=== PATIENT | female | born 1965 | race Caucasian/White ===

== ENCOUNTER → 2016-07-31 16:29 | Outpatient (CLI) | payer OTHER ==
[2013-06-16 07:22] VITALS: BMI 27.5
[~2016-07-31 16:29] MED LIST: ASPIRIN325 MG PO; B-12 DOTS500 MCG; CALAN SR240 MG PO; FOLATE0.4 MG PO; LASIX20 MG PO; NORCO 10/325 TA1 TA1 PO; POTABA500 M1; PRAVACHOL40 MG PO; PRILOSEC20 MG PO; TOPROL XL50 MG PO; TRIGLIDE160 MG PO; XANAX1 MG PO
== END | disposition home or self-care (01) ==
LOC: D.MAMMO 11:15
DX: Z12.31 Encounter for screening mammogram for malignant neoplasm of breast (principal)

== ENCOUNTER → 2017-09-09 20:09 | Outpatient (CLI) | payer OTHER ==
[2013-06-16 07:22] VITALS: BMI 27.5
== END | disposition home or self-care (01) ==
LOC: D.MAMMO 10:00
DX: Z12.31 Encounter for screening mammogram for malignant neoplasm of breast (principal)

== ENCOUNTER → 2018-11-10 08:00 | Outpatient (CLI) | payer OTHER ==
[2013-06-16 07:22] VITALS: BMI 27.5
== END | disposition home or self-care (01) ==
LOC: D.MAMMO 08:00
PROVIDERS: ATTEND Family Medicine
DX: Z12.31 Encounter for screening mammogram for malignant neoplasm of breast (principal)

== ENCOUNTER → 2019-12-28 23:52 | Outpatient (CLI) | payer OTHER ==
[2013-06-16 07:22] VITALS: BMI 27.5
== END | disposition home or self-care (01) ==
LOC: D.MAMMO 09:00
PROVIDERS: ATTEND Family Medicine
DX: Z12.31 Encounter for screening mammogram for malignant neoplasm of breast (principal)